=== PATIENT | male | born 1990 | race Two or more races ===

== ENCOUNTER → 2018-06-16 | Outpatient (CLI) | payer SELFPAY ==
--- NOTE | 2018-06-16 20:00 | CPEEG ---
[f rep st] ELECTROENCEPHALOGRAM DATE OF STUDY: 06/16/2018 DATE OF INTERPRETATION: 06/16/2018. INTERPRETATION: Normal EEG during wakefulness and sleep. There were no potentially epileptogenic ab normalities present during the recording. REPORT: This EEG contains 10 Hz alpha activity to the posterior head regions. There was no abnormal activation at rest, during photic stimulation, or hyperventilation. There was some intermittent eye flutter artifact noted in the frontal leads. The patient became drowsy and fell asleep during the s tudy. There was no abnormal activation during drowsiness, sleep, or during times of arousal. /[id number]/MODL
== END ==
LOC: FCPNEURO 14:03
PROVIDERS: ATTEND Psychiatry & Neurology Neurology
DX: R40.4 Transient alteration of awareness (principal)